=== PATIENT | male | born 1950 | race Caucasian/White ===

== ENCOUNTER → 2017-02-28 | Outpatient (CLI) | payer MEDICARE, OTHER ==
[~2017-02-28] MED LIST: ASCO500T20 PO; ASP325TEC; ASP81TEC PO; ATEN25TA PO; ATN50T; C250T; CHOL2000 PO; CLPD75T PO; CYAN10007 PO; ENLP10T PO; NFD60TCR PO; OMG1KC PO; OMNICEF; SIMV40TA2 PO; THM100T; VIT D OTC PO; VITAMIN B
--- NOTE | 2017-03-03 06:39 | ECHOCARDIOGRAPHY REPORT ---
DATE OF SERVICE: 02/28/2017 ECHOCARDIOGRAPHY REPORT ORDERING PHYSICIAN: Ally Bolivar APRN PRIMARY PHYSICIAN: Dr. Caceres. OTHER PHYSICIAN: Dr. Manning. CLINICAL DIAGNOSIS: Coronary artery disease, hypertension. MEASUREMENTS: Aortic root 3.3. LV diameter diastolic 5.5. IVS thickness, diastolic 0.9. LVPW thickness, diastolic 0.9. Left atrium 4.6. DESCRIPTION: Two dimensional echocardiography shows well-preserved global left ventricular systolic function. Left ventricular ejection fraction is approximately 60%. Aortic, mitral and tricuspid valve leaflets show good leaflet excursion. There is no significant pericardial effusion. There is mild aortic valve sclerosis. The aortic valve leaflet structure is not very well visualized. No distinct regional wall motion abnormalities seen on this study. Doppler imaging shows trivial tricuspid regurgitation. Pulmonary artery systolic pressure is estimated at approximately 30 mmHg. There is no Doppler evidence of significant valvular stenosis. There is mild to moderate mitral regurgitation. There is no evidence of any significant intracardiac shunt on this transthoracic echocardiographic study. Inferior vena cava appears to be of normal size and appears mostly collapsed during the study. There is no distinct evidence of intracardiac shunt on this transthoracic echocardiographic study. CONCLUSIONS: 1. Well preserved global left ventricular systolic function with ejection fraction approximately 60%. 2. Mild to moderate enlargement of the left atrium. 3. Trivial tricuspid regurgitation. 4. Mild to moderate mitral regurgitation. 5. Mild aortic valve sclerosis. 6. No evidence of any significant valvular stenosis. 7. Pulmonary systolic pressure is estimated at approximately 30 mmHg. Job ID: [id number] DocumentID: [id number] Dictated Date: 03/02/2017 15:11:57 Wildlife Ecology Professor Date: 03/02/2017 19:28:20 Dictated By: KENNY MANNING MD, MA, FACP, FACC,
== END ==
LOC: CARD 11:49
PROVIDERS: ATTEND Nurse Practitioner Family
DX: I25.10 Atherosclerotic heart disease of native coronary artery without angina pectoris (principal); I10 Essential (primary) hypertension; E78.4 Other hyperlipidemia; G47.33 Obstructive sleep apnea (adult) (pediatric); I65.23 Occlusion and stenosis of bilateral carotid arteries; I08.0 Rheumatic disorders of both mitral and aortic valves
CPT/HCPCS: 93306

== ENCOUNTER → 2019-04-11 | Outpatient (CLI) | payer MEDICARE, OTHER ==
--- NOTE | 2019-04-11 13:54 | Diagnostic Imaging Report ---
INDICATION: Fall, right shoulder pain FINDINGS: Three views of the right shoulder show no fracture, dislocation or other acute bony abnormality. There are mild degenerative changes at the glenohumeral joint. There is slight narrowing of the space between the humeral head and acromion which may be secondary to rotator cuff disease. IMPRESSION: There are degenerative changes present with no acute abnormality seen. Dictated by: Dictated on workstation # [id number]
== END ==
LOC: RAD 13:27
PROVIDERS: ATTEND Nurse Practitioner Family
DX: M19.011 Primary osteoarthritis, right shoulder (principal); W19.XXXA Unspecified fall, initial encounter
CPT/HCPCS: 73030

== ENCOUNTER → 2019-04-22 | Outpatient (CLI) | payer MEDICARE, OTHER ==
--- NOTE | 2019-04-22 13:00 | Diagnostic Imaging Report ---
EXAMINATION: Magnetic resonance imaging of the right shoulder without contrast. DATE: April 22, 2019. COMPARISON: Right shoulder radiograph April 11, 2019. HISTORY: 68-year-old male, injury one week ago. Right shoulder pain. TECHNIQUE: Magnetic Resonance Imaging sequences were performed of the shoulder without contrast. FINDINGS: ROTATOR CUFF, LIGAMENTS, TENDONS, AND MUSCLES: There are full-thickness fullwidth tears of the supraspinatus and infraspinatus tendons with tendon retraction near the level of the glenoid. The teres minor tendon is intact. There is a full-thickness tear of the subscapularis tendon with tendon retraction estimated at 1.5 cm. There is no pronounced fatty atrophy of the rotator cuff musculature. There is very low-level edema in the supraspinatus and infraspinatus muscles. LONG HEAD OF BICEPS: The long head of biceps tendon is medially subluxed and partially perched on the lesser tuberosity. The biceps labral attachment is intact. GLENOHUMERAL JOINT: The humeral head is superiorly subluxed and directly abuts the undersurface of the acromion. There is mild posterior subluxation of the humeral head relative to the glenoid. The labrum is grossly intact. There is no identified paralabral cyst. The articular cartilage is grossly intact. There is a small glenohumeral joint effusion. ACROMIOCLAVICULAR JOINT: The acromioclavicular joint is normally aligned. The coracoclavicular and coracoacromial ligaments are intact. There are mild acromioclavicular degenerative changes without large undersurface osteophyte. BONE: There is no os acromiale. Additional osseous morphology is unremarkable. The bone marrow signal is within normal limits. Specifically, negative for fracture, osteomyelitis, osteonecrosis, or marrow replacing process. BURSAE AND SOFT TISSUES: There is fluid in the subacromial subdeltoid bursa compatible with the full-thickness rotator cuff tendon tears, bursitis, and/or recent injection. IMPRESSION: 1. Full-thickness fullwidth tears of the supraspinatus and infraspinatus tendons as well as subscapularis. The supraspinatus and infraspinatus tendons are retracted near the level of the glenoid. There is estimated 1.5 cm retraction of the subscapularis tendon. Very low level edema in the supraspinatus and infraspinatus muscles without prominent fatty muscle atrophy. The edema could relate to low-grade muscle strains and/or early denervation related signal changes. 2. Mild acromioclavicular degenerative changes without undersurface osteophyte. 3. Superiorly subluxed and mildly posteriorly subluxed humeral head with small glenohumeral joint effusion. Grossly intact labrum. 4. No acute fracture, bone contusion, or evidence of osteonecrosis. 5. Fluid in the subacromial subdeltoid bursa compatible with the full-thickness rotator cuff tendon tear, bursitis, and/or recent injection. Dictated by: Dictated on workstation # [id number]
== END ==
LOC: RAD 09:06
PROVIDERS: ATTEND Nurse Practitioner
DX: S49.91XA Unspecified injury of right shoulder and upper arm, initial encounter (principal); S46.011A Strain of muscle(s) and tendon(s) of the rotator cuff of right shoulder, initial encounter; S43.001A Unspecified subluxation of right shoulder joint, initial encounter; M19.011 Primary osteoarthritis, right shoulder
CPT/HCPCS: 73221

== ENCOUNTER → 2019-05-14 | Outpatient (CLI) | payer MEDICARE, OTHER ==
[~2019-05-14] MED LIST changes: +CATHETER FLUSH 10 ML SYR IV PRN; +REGADENOSON 0.4 MG/5 ML SYR (LEXISCAN) IV ONE
--- NOTE | 2019-05-17 15:03 | STRESS TEST ---
DATE OF SERVICE: 05/14/2019 RESTING AND POST REGADENOSON TECHNETIUM-99M TETROFOSMIN SPECT CT IMAGING ORDERING PHYSICIAN: Ally Bolivar APRN PRIMARY PHYSICIAN: Dr. Garcia. OTHER PHYSICIAN: Shanell Manning MD, MA, FACP, FACC CLINICAL DIAGNOSES: Coronary artery disease. Baseline images were carried out after injection of 10.68 mCi of technetium-99m Tetrofosmin. This was followed by 0.4 mg regadenoson and 28.4 mCi of technetium-99m Tetrofosmin for stress imaging. The electrocardiogram showed sinus rhythm at baseline. It did not change significantly with regadenoson infusion. The patient tolerated the procedure well. Review of images at rest and following stress does not indicate any distinct perfusion defects consistent with significant myocardial ischemia or infarction. Gated images showed normal global left ventricular systolic function, normal regional wall motion. Left ventricular ejection fraction is calculated to be 55%. Left ventricular end diastolic volume is 140 mL. TID is absent (1.07). CONCLUSIONS: 1. Pahl-tr-etutfooi cardiomegaly without evidence of significant myocardial ischemia or infarction. 2. Normal regional wall motion. 3. Normal global left ventricular systolic function with a calculated ejection fraction of 55%. Job ID: [id number] DocumentID: [id number] Dictated Date: 05/17/2019 11:43:23 Cut Off Saw Operator Metal Date: 05/17/2019 15:03:20 Dictated By: SHANELL MANNING MD, [place], FACP, FACC,
== END ==
LOC: CARD 07:12
PROVIDERS: ATTEND Nurse Practitioner Family
DX: I25.10 Atherosclerotic heart disease of native coronary artery without angina pectoris (principal); I11.9 Hypertensive heart disease without heart failure; I65.29 Occlusion and stenosis of unspecified carotid artery; E78.2 Mixed hyperlipidemia; G47.33 Obstructive sleep apnea (adult) (pediatric)
CPT/HCPCS: 78452; 93017

== ENCOUNTER 2019-07-14 08:23 | Outpatient (RCR) | payer MEDICARE, OTHER ==
[~2019-07-14 08:23] MED LIST changes: -CATHETER FLUSH 10 ML SYR IV PRN; -REGADENOSON 0.4 MG/5 ML SYR (LEXISCAN) IV ONE
== END 2019-07-14 10:40 | disposition home or self-care (01) ==
PROVIDERS: ATTEND Orthopaedic Surgery
DX: S46.011A Strain of muscle(s) and tendon(s) of the rotator cuff of right shoulder, initial encounter (principal); W17.2XXA Fall into hole, initial encounter

== ENCOUNTER 2019-11-04 23:14 | Emergency (ER) | payer MEDICARE, OTHER ==
[~2019-11-04] VITALS: Ht 180 cm; Wt 98.8 kg
[2019-11-04 23:59] LABS: BASOPHILS % (AUTO) 0 % (0-10); EOSINOPHILS # (AUTO) 0.2 10^3/uL (0.0-0.3); EOSINOPHILS % (AUTO) 4 % (0-10); HEMATOCRIT 47 % (40-54); HEMOGLOBIN 16.8 G/DL (13.3-17.7); LYMPHOCYTES # (AUTO) 2.4 X 10^3 (1.0-4.0); LYMPHOCYTES % (AUTO) 39 % (12-44); MEAN CORPUSCULAR HEMOGLOBIN 31 PG (25-34); MEAN CORPUSCULAR HGB CONC 36 G/DL (32-36); MEAN CORPUSCULAR VOLUME 86 FL (80-99); MEAN PLATELET VOLUME 9.5 FL (7.4-10.4); MONOCYTES # (AUTO) 0.7 X 10^3 (0.0-1.0); MONOCYTES % (AUTO) 12 % (0-12); NEUTROPHILS # (AUTO) 2.7 X 10^3 (1.8-7.8); NEUTROPHILS % (AUTO) 45 % (42-75); PLATELET COUNT 118 10^3/uL (130-400); RED CELL DISTRIBUTION WIDTH 13.1 % (10.0-14.5); WHITE BLOOD COUNT 6.1 10^3/uL (4.3-11.0)
--- NOTE | 2019-11-05 | ED Syncope ---
General Chief Complaint: Dizziness/Syncope Stated Complaint: DIZZY Source of Information: Patient, Spouse Exam Limitations: No Limitations History of Present Illness Date Seen by Provider: Nov 04, 2019 Time Seen by Provider: 23:48 Initial Comments The patient arrives the ER by private conveyance with his spouse and chief complaint for the past week he's been having intermittent episodes lasting a few minutes at the time of feeling like his head was full, big and like he was going to pass out. He has not had any syncopal episodes. Tonight he woke up around 10:00 with this symptom and it has not gone away. He has tried Flonase couple times. He's tried some srjp-awi-fvkcojc cough and cold/congestion medications with no relief. He used to follow with Dr. Garcia but recently established care 3 weeks ago with Reji Ricardo and has not followed up since then. He is not having any chest pain, irregular heartbeat or palpitations. No history of dysrhythmias. 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 He is not having any shortness of breath or exertional dyspnea. No nausea vomiting diarrhea, abdominal pain, dysuria. He does not routinely drink or smoke. Allergies and Home Medications Allergies Coded Allergies: No Known Drug Allergies (Verified , 11/04/07) Home Medications Ascorbic Acid 500 Mg Tablet, 500 MG PO DAILY, (Reported) Aspirin 81 Mg Tabec, 81 MG PO DAILY, (Reported) Atenolol 25 Mg Tablet, 25 MG PO DAILY, (Reported) Cholecalciferol 2,000 Unit Capsule, 2,000 UNIT PO DAILY, (Reported) Clopidogrel 75 Mg Tablet, 75 MG PO DAILY, (Reported) Cyanocobalamin 1,000 Mcg Tablet.sa, 1,000 MCG PO DAILY, (Reported) Enalapril Maleate 10 Mg Tablet, 10 MG PO BID, (Reported) Nifedipine 60 Mg Tab, 60 MG PO DAILY, (Reported) [place] 3 Polyunsat Fatty Acids 1,000 Mg Cap, 1,000 MG PO BID, (Reported) Simvastatin 40 Mg Tablet, 40 MG PO HS, (Reported) Patient Home Medication List Home Medication List Reviewed: Yes Review of Systems Constitutional: see HPI; No chills; dizziness; No fever, No malaise EENTM: see HPI (ear pressure), nose congestion; No ear discharge, No ear pain Respiratory: No cough, No dyspnea on exertion, No short of breath, No wheezing Cardiovascular: No chest pain, No edema; Hx of Intervention; No palpitations; syncope (near syncope without), vascular heart diseas Gastrointestinal: No abdominal pain, No constipation, No diarrhea, No nausea, No vomiting Genitourinary: No discharge, No dysuria Musculoskeletal: No back pain, No joint pain Psychiatric/Neurological: Denies Anxiety, Denies Depressed All Other Systems Reviewed Negative Unless Noted: Yes Past Hlyxvvg-Lnaxmj-Qotlxy Hx Patient Social History Alcohol Use: Denies Use Recreational Drug Use: No Smoking Status: Never a Smoker Recent Foreign Travel: No Contact w/Someone Who Travel: No Immunizations Up To Date Date of Influenza Vaccine: Jul 12, 2014 Past Medical History Reproductive Disorders: No Physical Exam Vital Signs Vital Signs - First Documented 11/05/19 00:17 Pulse 63 62 60 B/P (MAP) 154/82 (106) 154/78 (103) 149/92 (111) Capillary Refill : Height, Weight, BMI Height: 5'11" Weight: 210lbs. oz. 95.253925tv; BMI Method:Stated General Appearance: No Apparent Distress, WD/WN HEENT: PERRL/EOMI, TMs Normal, Normal ENT Inspection, Pharynx Normal; No Moist Mucous Membranes Neck: Full Range of Motion, Normal Inspection Cardiovascular: No Edema, Normal Peripheral Pulses Respiratory: Chest Non Tender, Lungs Clear, Normal Breath Sounds, No Accessory Muscle Use, No Respiratory Distress Gastrointestinal: Normal Bowel Sounds, Non Tender, Soft Extremities: Normal Capillary Refill, Normal Inspection, No Pedal Edema Neurologic/Psychiatric: Alert, Oriented x3 Cranial Nerves: Normal Hearing, Normal Speech, PERRL Motor/Sensory: No Motor Deficit, No Sensory Deficit Skin: Normal Color, Warm/Dry Progress/Results/Core Measures Results/Orders Lab Results Laboratory Tests Test 11/04/19 23:48 11/05/19 00:13 Range/Units White Blood Count 6.1 4.3-11.0 10^3/uL Red Blood Count 5.45 4.35-5.85 10^6/uL Hemoglobin 16.8 13.3-17.7 G/DL Hematocrit 47 40-54 % Mean Corpuscular Volume 86 80-99 FL Mean Corpuscular Hemoglobin 31 25-34 PG Mean Corpuscular Hemoglobin Concent 36 32-36 G/DL Red Cell Distribution Width 13.1 10.0-14.5 % Platelet Count 118 L 130-400 10^3/uL Mean Platelet Volume 9.5 7.4-10.4 FL Neutrophils (%) (Auto) 45 42-75 % Lymphocytes (%) (Auto) 39 12-44 % Monocytes (%) (Auto) 12 0-12 % Eosinophils (%) (Auto) 4 0-10 % Basophils (%) (Auto) 0 0-10 % Neutrophils # (Auto) 2.7 1.8-7.8 X 10^3 Lymphocytes # (Auto) 2.4 1.0-4.0 X 10^3 Monocytes # (Auto) 0.7 0.0-1.0 X 10^3 Eosinophils # (Auto) 0.2 0.0-0.3 10^3/uL Basophils # (Auto) 0.0 0.0-0.1 10^3/uL Sodium Level 139 135-145 MMOL/L Potassium Level 3.9 3.6-5.0 MMOL/L Chloride Level 108 H 98-107 MMOL/L Carbon Dioxide Level 21 21-32 MMOL/L Anion Gap 10 5-14 MMOL/L Blood Urea Nitrogen 17 7-18 MG/DL Creatinine 0.89 0.60-1.30 MG/DL Estimat Glomerular Filtration Rate > 60 BUN/Creatinine Ratio 19 Glucose Level 123 H 70-105 MG/DL Calcium Level 9.4 8.5-10.1 MG/DL Corrected Calcium 9.2 8.5-10.1 MG/DL Total Bilirubin 0.9 0.1-1.0 MG/DL Aspartate Amino Transf (AST/SGOT) 29 5-34 U/L Alanine Aminotransferase (ALT/SGPT) 42 0-55 U/L Alkaline Phosphatase 67 40-136 U/L Troponin I < 0.028 <0.028 NG/ML B-Type Natriuretic Peptide 69.8 <100.0 PG/ML Total Protein 7.3 6.4-8.2 GM/DL Albumin 4.3 3.2-4.5 GM/DL Urine Color YELLOW Urine Clarity CLEAR Urine pH 5.5 5-9 Urine Specific [place] 1.025 H 1.016-1.022 Urine Protein NEGATIVE NEGATIVE Urine Glucose (UA) NEGATIVE NEGATIVE Urine Ketones NEGATIVE NEGATIVE Urine Nitrite NEGATIVE NEGATIVE Urine Bilirubin NEGATIVE NEGATIVE Urine Urobilinogen 0.2 < = 1.0 MG/DL Urine Leukocyte Esterase NEGATIVE NEGATIVE Urine RBC (Auto) TRACE-L NEGATIVE Urine RBC 0-2 /HPF Urine WBC 0-2 /HPF Urine Crystals PRESENT H /LPF Urine Amorphous Sediment FEW MUKESH URATES H /LPF Urine Bacteria TRACE /HPF Urine Casts NONE /LPF Urine Mucus SMALL H /LPF Urine Culture Indicated NO My Orders Orders - SARAY,DANIELLE J Continuous Ekg Monitoring (11/04/19 23:53) Ekg Tracing (11/04/19 23:53) Troponin I (11/04/19 23:53) BNP (11/04/19 23:53) Orthostatic Vital Signs (Adult (11/04/19 23:53) Cbc With Automated Diff (11/04/19 23:53) Comprehensive Metabolic Panel (11/04/19 23:53) Ua Culture If Indicated (11/04/19 23:53) Ed Iv/Invasive Line Start (11/04/19 23:53) Chest 1 View, Ap/Pa Only (11/05/19 00:06) Vital Signs/I&O 11/05/19 00:17 Pulse 63 62 60 B/P (MAP) 154/82 (106) 154/78 (103) 149/92 (111) Progress Progress Note #1: Time: 23:59 Progress Note Bilateral ear fullness, head pressure and near syncopal episodes for the past week. We'll obtain some labs and urinalysis for a syncopal episode workup. We'll get an EKG, chest x-ray and obtain orthostatic vital signs. Stress test from April 2019 showing mild to moderate cardiomegaly without evidence of significant ischemia or infarction and an EF of 55%. Echocardiogram [address] Stark: EF of 60%. No significant valvular stenosis. Progress Note #2: Time: 01:37 Progress Note Orthostatic vital signs are normal. EKG is unremarkable. [place] syncope score 1 point. Medium risk; 3.1% risk of 30-day serious adverse event. Initial ECG Impression Date: Nov 05, 2019 Initial ECG Impression Time: 23:59 Initial ECG Rate: 59 Initial ECG Intervals: Normal Initial ECG Impression: Normal Initial ECG Comparisson: Unchanged Comment Respiratory artifact in lateral leads V4 and V5. No ST elevation or depression. Normal sinus rhythm. Diagnostic Imaging Diagonstic Imaging: Xray Plain Films/CT/US/NM/MRI: chest (1v) Comments No acute cardiopulmonary processes noted. Sternotomy wires noted. Reviewed: Reviewed by Me Departure Impression Primary Impression: Near syncope Disposition: 01 HOME, SELF-CARE Condition: Stable Departure-Patient Inst. Decision time for Depature: 01:43 Referrals: KENNY STARK [facility] REJI ANDERSON MD (PCP/Family) Primary Care Physician Patient Instructions: Near Fainting (DC) Add. Discharge Instructions: Because of your near fainting spells becoming more frequent I would like to follow up with your warehouse distribution specialist early next week if possible. Call for an appointment today. If you begin to have other symptoms such as chest pain, shortness of breath etc. please return to the nearest ER. Continue taking her medications as prescribed. All discharge instructions reviewed with patient and/or family. Voiced understanding. Copy Copies To 1: KENNY STARK MD [facility] DANIELLE SO Nov 05, 2019 00:00
[2019-11-05 00:17] VITALS: BP_SYST 149; BP_SYST 154; BP_DIAS 78; BP_DIAS 82; BP_DIAS 92
[2019-11-05 00:17] LABS: ALANINE AMINOTRANSFERASE 42 U/L (0-55); ALBUMIN 4.3 GM/DL (3.2-4.5); ALKALINE PHOSPHATASE 67 U/L (40-136); BILIRUBIN,TOTAL 0.9 MG/DL (0.1-1.0); BUN/CREATININE RATIO 19; CALCIUM 9.4 MG/DL (8.5-10.1); CARBON DIOXIDE 21 MMOL/L (21-32); CHLORIDE 108 MMOL/L (98-107); CREATININE SERUM 0.89 MG/DL (0.60-1.30); GFR ESTIMATED > 60; GLUCOSE 123 MG/DL (70-105); POTASSIUM 3.9 MMOL/L (3.6-5.0); SODIUM 139 MMOL/L (135-145); TOTAL PROTEIN 7.3 GM/DL (6.4-8.2)
[2019-11-05 00:20] LABS: BILIRUBIN,URINE NEGATIVE (NEGATIVE); CLARITY,URINE CLEAR; COLOR,URINE YELLOW; GLUCOSE, URINE (UA) NEGATIVE (NEGATIVE); KETONES,URINE NEGATIVE (NEGATIVE); LEUKOCYTE ESTERASE ,URINE NEGATIVE (NEGATIVE); NITRITE,URINE NEGATIVE (NEGATIVE); PH,URINE 5.5 (5-9); PROTEIN,URINE NEGATIVE (NEGATIVE)
[2019-11-05 00:41] LABS: RBC,URINE 0-2 /HPF; WBC,URINE 0-2 /HPF
[2019-11-05 00:42] LABS: AMORPHOUS SEDIMENT,UR FEW AMOR URATES /LPF; BACTERIA,URINE TRACE /HPF
[2019-11-05 01:58] VITALS: BP 132/74
--- NOTE | 2019-11-05 07:18 | Diagnostic Imaging Report ---
EXAM: CHEST 1 VIEW, AP/PA ONLY INDICATION: Dizziness. COMPARISON: 04/14/2008. FINDINGS: Sternotomy with mediastinal markers. Calcified granuloma on the right. Normal heart size and central pulmonary vascularity. No pleural effusion or pneumothorax. IMPRESSION: No acute cardiopulmonary findings. Dictated by: Dictated on workstation # [id number]
== END 2019-11-05 01:58 | disposition home or self-care (01) ==
LOC: EDUNIT# 23:14 → ER 23:17
DX: R55 Syncope and collapse (principal); Z95.1 Presence of aortocoronary bypass graft; Z79.82 Long term (current) use of aspirin; Z79.02 Long term (current) use of antithrombotics/antiplatelets
CPT/HCPCS: 36415; 71045; 80053; 81000; 83880; 84484; 85025; 93005

== ENCOUNTER 2019-11-11 07:20 | Outpatient (RCR) | payer MEDICARE, OTHER ==
[2019-12-21] MEDS ORDERED: MTP100TCR PO (08:21)
[2019-12-21] MEDS ORDERED: LISI-556 PO (08:21)
[2019-12-21] MEDS ORDERED: ATOR40TA70 PO (08:21)
== END 2020-02-09 | disposition home or self-care (01) ==
LOC: RAD 07:20
PROVIDERS: ATTEND Internal Medicine Cardiovascular Disease
DX: I25.10 Atherosclerotic heart disease of native coronary artery without angina pectoris (principal); I77.89 Other specified disorders of arteries and arterioles; E78.5 Hyperlipidemia, unspecified; I10 Essential (primary) hypertension; R51 Headache; G47.33 Obstructive sleep apnea (adult) (pediatric); I47.1 Supraventricular tachycardia
CPT/HCPCS: 70470

== ENCOUNTER → 2019-11-16 | Outpatient (CLI) | payer MEDICARE, OTHER | LOC: CARD 09:25 | PROVIDERS: ATTEND Internal Medicine Cardiovascular Disease | DX: I25.10 Atherosclerotic heart disease of native coronary artery without angina pectoris (principal); I77.89 Other specified disorders of arteries and arterioles; E78.5 Hyperlipidemia, unspecified; I11.9 Hypertensive heart disease without heart failure; I34.0 Nonrheumatic mitral (valve) insufficiency; R51 Headache; G47.33 Obstructive sleep apnea (adult) (pediatric); I47.1 Supraventricular tachycardia | CPT/HCPCS: 93306 ==

== ENCOUNTER 2019-12-21 07:54 | Day surgery (SDC) | payer MEDICARE, OTHER ==
[2019-12-21] VITALS (9 sets, daily range): BP systolic 99–176; BP diastolic 51–101
[~2019-12-21] VITALS: Ht 180 cm; Wt 95.0 kg
[~2019-12-21 07:54] MED LIST changes: +HEParin (CATH LAB) 2,000 ML IV ONE; +LIDOCAINE 1% INJ 20 ML 20 ML VIAL ONE; +NS IV 1000 ML 1,000 ML ONE
[2019-12-21] MEDS ORDERED: NS IV 1000 ML 1,000 ML IV SCH ×2 (08:15→11:11)
[2019-12-21 08:19] LABS: HEMOGLOBIN 17.4 G/DL (13.3-17.7); MEAN PLATELET VOLUME 9.5 FL (7.4-10.4); RED CELL DISTRIBUTION WIDTH 13.7 % (10.0-14.5); WHITE BLOOD COUNT 7.3 10^3/uL (4.3-11.0)
[2019-12-21] MEDS ORDERED: MTP100TCR PO (08:21)
[2019-12-21] MEDS ORDERED: LISI-556 PO (08:21)
[2019-12-21] MEDS ORDERED: ATOR40TA70 PO (08:21)
[2019-12-21 08:33] LABS: INR 0.9 (0.8-1.4); PROTHROMBIN TIME PATIENT 12.9 SEC (12.2-14.7)
[2019-12-21 08:41] LABS: ALANINE AMINOTRANSFERASE 66 U/L (0-55); ALBUMIN 4.5 GM/DL (3.2-4.5); ALKALINE PHOSPHATASE 71 U/L (40-136); BILIRUBIN,TOTAL 1.7 MG/DL (0.1-1.0); BUN/CREATININE RATIO 13; CALCIUM 9.3 MG/DL (8.5-10.1); CARBON DIOXIDE 24 MMOL/L (21-32); CHLORIDE 102 MMOL/L (98-107); CHOLESTEROL 138 MG/DL (< 200); CREATININE SERUM 1.04 MG/DL (0.60-1.30); GFR ESTIMATED > 60; GLUCOSE 105 MG/DL (70-105); HDL CHOLESTEROL 48 MG/DL (40-60); SODIUM 138 MMOL/L (135-145); TOTAL PROTEIN 7.5 GM/DL (6.4-8.2); TRIGLYCERIDES 208 MG/DL (<150); VLDL CHOLESTEROL 42 MG/DL (5-40)
[2019-12-21] MEDS ORDERED: MIDAZOLAM 5 MG/5 ML (VERSED) VIAL ONE (09:51)
[2019-12-21] MEDS ORDERED: fentaNYL INJECTION 100 MCG/2 ML AMP ONE (09:52)
--- NOTE | 2019-12-21 10:21 | Cardiac Procedure Note-CS/ASA ---
Pre-Procedure Note Pre-Op Procedure Note H&P Reviewed The H&P was reviewed, patient examined and no changes noted. Date H&P Reviewed: Dec 21, 2019 Time H&P Reviewed: 10:21 Conscious Sedation Pre-Proced Time 10:21 ASA Score 3 For ASA 3 and 4: Consider anesthesia and medical clearance. Also, for patients with a history of failed moderate sedation consider anesthesia. Airway Lungs Heart ASA score ASA 1: a normal healthy patient ASA 2: a patient with a mild systemic disease (mid diabetes, controlled hypertension, obesity ASA 3: a patient with a severe systemic disease that limits activity (angina, COPD, prior Myocardial infarction) ASA 4: a patient with an incapacitating disease that is a constant threat to life (CHF, renal failure) ASA 5: a moribund patient not expected to survive 24 hrs. (ruptured aneurysm) ASA 6: a declared brain- patient whose organs are being harvested. For emergent operations, add the letter E after the classification Mallampati Classification Grade 2 Sedation Plan Analgesia, Amnesia, Plan communicated to team members, Discussed options with patient/fam, Discussed risks with patient/fam The patient is an appropriate candidate to undergo the planned procedure, sedation, and anesthesia. The patient immediately re-assessed prior to indication. KENNY MANNING MD FACP FAC CCDS Dec 21, 2019 10:21
[2019-12-21] MEDS ORDERED: PATIENT MAY USE OWN MEDS, ALL PO SCH (11:15)
--- NOTE | 2019-12-21 11:19 | Discharge Inst-Cardiology ---
Discharge Inst-Cardiac Discharge Medications Continued Medications: Ascorbic Acid (Vitamin C 500 Mg) 500 Mg Tablet 500 MG PO DAILY Aspirin (Aspirin Ec 81 Mg) 81 Mg Tabec 81 MG PO DAILY Cholecalciferol (Vitamin D) 2,000 Unit Capsule 2000 UNIT PO DAILY Clopidogrel (Plavix) 75 Mg Tablet 75 MG PO DAILY Cyanocobalamin (Vitamin B12) 1,000 Mcg Tablet.sa 1000 MCG PO DAILY Lisinopril (Lisinopril) 5 Mg Tablet 5 MG PO BID, TAB Metoprolol Succinate (Metoprolol Succinate) 100 Mg Tab.er.24h 100 MG PO DAILY, TAB [place] 3 Polyunsat Fatty Acids (Fish Oil) 1,000 Mg Cap 1000 MG PO BID Discontinued Medications: Atorvastatin Calcium (Atorvastatin Calcium) 40 Mg Tablet 40 MG PO HS, TAB Patient Instructions Patient Instructions: F/u with PCP as soon as possible for eval of mildly elevated liver enzymes and bilirubin KENNY MANNING MD FACP [facility] Dec 21, 2019 11:19
--- NOTE | 2019-12-21 11:20 | Discharge Inst-Post CATH ---
Discharge Inst-CATH/EP Post Cardiac Cath/EP D/C Inst Follow Up/Plan F/u with PCP as soon as possible for eval of mildly elevated liver enzymes and bilirubin F/u with Dr Stark in one month (or earlier, if needed) ACTIVITY * Go Home directly and rest. * Limit activity of the leg (or wrist if it was used) for 7 days including aerobics, swimming, jogging, bicycling, etc. * Restrict stair-climbing for 7 days if possible, if not, climb up with your non-cath leg, then bring together on the same step. * Avoid lifting, pushing, pulling or excessive movement of the affected extremity for 7 days. * Customary sexual activity may be resumed after 2 days-use caution not to use a position that strains or causes pain to the affected extremity. * No driving for 24 hours. * NO SMOKING. * Avoid straining for bowel movements for 7 days. * Gentle walking on level ground is allowed. * Returning to work will depend on the type of procedure and the results. Your doctor will discuss this with you. CALL YOUR DOCTOR FOR ANY OF THE FOLLOWING: *If bleeding from the puncture site occurs- Apply gentle pressure to site with clean cloth and call your doctor or EMS. * If a knot or lump forms under the skin, increases in size, or causes pain. * If bruising appears to be worsening or moving further down your leg instead of disappearing. * Temperature above 101 F. CARE OF YOUR GROIN INCISION; * Bruising or purple discoloration of the skin near the puncture site is common. * You may shower only, no bathtub bathing for 5 days. Be careful to avoid slipping as your leg may feel stiff. * If a closure device was used on your femoral artery, please see the attached guide regarding care of the device and your leg. * Leave dressing on FOR 24 hours. CARE OF YOUR WRIST INCISION; * Bruising or purple discoloration of the skin near the puncture site is common. * You may shower. * DO NOT submerge wrist. * Leave dressing on FOR 24 hours. KENNY STARK MD FACP FAC [facility]S Dec 21, 2019 11:20
--- NOTE | 2019-12-21 11:33 | CARDIAC CATHETERIZATION ---
DATE OF SERVICE: 12/21/2019 CARDIAC CATHETERIZATION REPORT INDICATIONS: The patient is a 69-year-old gentleman, who is known to have coronary artery disease and has had coronary artery bypass surgery. He has recently had some episodes of dizziness and near syncope. An event monitor study showed brief runs of supraventricular tachycardia. One three beat run of wide complex tachycardia was seen on which nonsustained ventricular tachycardia could not be excluded. Cardiac catheterization was recommended. Informed consent was obtained. DESCRIPTION OF PROCEDURE: He was brought to the cardiac catheterization laboratory in a fasting state. Right groin was prepared and draped in the usual sterile fashion. Lidocaine 1% for local anesthesia. Modified Seldinger technique was used to advance a 5-Slovak sheath in right femoral artery, 5-Slovak JL4 catheter was used for left coronary angiography, 5-Slovak JR4 catheter for right coronary angiography and for angiography of the saphenous vein grafts. A 5-Slovak LISA catheter was used for angiography of the left internal mammary artery graft to left anterior descending. Angiography of the right femoral artery was carried out through the sheath. Mynx was used to achieve hemostasis. He tolerated the procedure well. HEMODYNAMICS: Left ventricular end-diastolic pressure following coronary angiography was 13 mmHg. There was no significant pressure gradient on pullback across the aortic valve. Ascending aortic pressure was 109/62 with a mean 84 mmHg. CORONARY ANGIOGRAPHY: Left main coronary artery is free of significant disease. Left anterior descending artery had a 90% proximal stenosis. Left circumflex artery had mild diffuse disease. Right coronary artery was heavily calcified and there are proximal to mid vessel and distal right coronary artery stents. There is approximately 60% stenosis prior to the origin of the posterior descending branch. The very distal portion of the right coronary artery beyond the posterior descending branch appears occluded. AORTOCORONARY GRAFT ANGIOGRAPHY: The more cephalic graft appears to a distal posterolateral system, which appears to be from the right coronary. This graft is patent and does not exhibit significant disease. The more caudal graft is occluded in its proximal portion. This, presumably, was to the posterior descending branch of the right. LEFT INTERNAL MAMMARY GRAFT ANGIOGRAPHY: Left internal mammary artery graft to distal left anterior descending artery is widely patent and does not exhibit significant disease. LEFT VENTRICULAR ANGIOGRAPHY: Left ventricular angiography was carried out in the right anterior oblique projection. Global left ventricular systolic function is well preserved. Left ventricular ejection fraction is approximately 55%. AORTIC ROOT ANGIOGRAPHY: Aortic root angiography did not indicate any significant thoracic aortic aneurysm or dissection. The aortic root angiography was performed after the pigtail catheter had been pulled back from the left ventricle into the ascending aorta. It was performed to make sure that no aortocoronary grafts have been missed. No aortocoronary grafts other than the ones described above were found. CONCLUSIONS: 1. Coronary artery disease consisting of 90% proximal stenosis of the left anterior descending artery and moderate disease involving the left circumflex and the right coronary arteries. The very distal portion of the right coronary artery appears to be occluded. 2. Patent left internal mammary artery graft to the left anterior descending. 3. Patent aortocoronary graft to a distal posterolateral system that is probably from the right coronary. 4. Occluded saphenous vein graft to posterior descending branch of the right coronary. 5. High normal left ventricular end-diastolic pressure. 6. Well preserved global left ventricular systolic function with ejection fraction approximately 55% and without distinct regional wall motion abnormalities. DISCUSSION AND RECOMMENDATIONS: Based on results of the study, it appears appropriate to continue a conservative approach. Risk factor modification has been reviewed and an outpatient followup is advised. Job ID: [id number] DocumentID: [id number] Dictated Date: 12/21/2019 11:00:25 Engineering Group Leader Date: 12/21/2019 11:32:42 Dictated By: KENNY MANNING MD, MA, FACP, FACC,
--- NOTE | 2019-12-21 14:10 | NUR ---
NO SIGNS OF BLEEDING. VSS. PATIENT UP TO AMBULATE IN THE HALLS. TOLERATED ACTIVITY WELL. DISCHARGE INSTRUCTIONS WENT OVER WITH THE PATIENT.
== END 2019-12-21 14:20 | disposition home or self-care (01) ==
LOC: CATH 07:54 → SDC 11:07 → CATH 14:20
PROVIDERS: ATTEND Internal Medicine Cardiovascular Disease
DX: I25.10 Atherosclerotic heart disease of native coronary artery without angina pectoris (principal); Z95.1 Presence of aortocoronary bypass graft; I10 Essential (primary) hypertension; I47.1 Supraventricular tachycardia; G47.33 Obstructive sleep apnea (adult) (pediatric); Z79.899 Other long term (current) drug therapy
CPT/HCPCS: 36415; 80053; 80061; 85027; 85610; 85730; 87081; 93459; 93567

== ENCOUNTER → 2021-12-04 | Outpatient (CLI) | payer MEDICARE, OTHER ==
[~2021-12-04] MED LIST changes: +ATOR40TA70 PO; +CATHETER FLUSH 10 ML SYR IVP PRN; -HEParin (CATH LAB) 2,000 ML IV ONE; -LIDOCAINE 1% INJ 20 ML 20 ML VIAL ONE; +LISI5TAB20 PO; +MTP100TCR PO; -NS IV 1000 ML 1,000 ML ONE; +REGADENOSON 0.4 MG/5 ML SYR (LEXISCAN) IV ONE
[2021-12-04 12:59] VITALS: BP 180/100
--- NOTE | 2021-12-04 19:32 | STRESS TEST ---
DATE OF SERVICE: 12/04/2021 RESTING AND POST REGADENOSON TECHNETIUM-99M TETROFOSMIN IMAGING ORDERING PHYSICIAN: Ally Bolivar APRN PRIMARY PHYSICIAN: Dr. Eduardo Kemp. OTHER PHYSICIAN: Dr. Manning. CLINICAL DIAGNOSIS: Coronary artery disease. Baseline images were carried out after injection of 10.29 mCi of technetium-99m Tetrofosmin. This was followed by 0.4 mg regadenoson and 30.8 mCi of technetium-99m Tetrofosmin for stress imaging. The electrocardiogram showed sinus rhythm at baseline. It did not change significantly with regadenoson infusion. The patient noted mild shortness of breath following regadenoson infusion, which resolved in a few minutes. Review of images at rest and following stress does not indicate any significant perfusion defects consistent with myocardial ischemia or infarction. Gated images show normal global left ventricular systolic function with normal regional wall motion. Left ventricular ejection fraction is calculated to be 49%. Left ventricular end-diastolic volume is 102 mL. CONCLUSIONS: 1. No evidence of any significant myocardial ischemia or infarction is seen. 2. No regional wall motion abnormality is seen of the study. 3. Well preserved global left ventricular systolic function with a calculated ejection fraction of 49%. 4. Mild cardiomegaly. Job ID: [id number] DocumentID: [id number] Dictated Date: 12/04/2021 18:06:53 Retail Agent Date: 12/04/2021 19:31:55 Dictated By: KENNY MANNING MD, MA, FACP, FACC,
== END ==
LOC: CARD 12:00
PROVIDERS: ATTEND Nurse Practitioner Family
DX: I51.7 Cardiomegaly (principal); I34.0 Nonrheumatic mitral (valve) insufficiency; I25.10 Atherosclerotic heart disease of native coronary artery without angina pectoris
CPT/HCPCS: 78452; 93017; 93306; A9502

== ENCOUNTER 2022-04-17 05:38 | Outpatient (CLI) | payer MEDICARE, OTHER ==
[~2022-04-17] VITALS: Ht 180.3 cm; Wt 95.3 kg
[~2022-04-17 05:38] MED LIST changes: -CATHETER FLUSH 10 ML SYR IVP PRN; -REGADENOSON 0.4 MG/5 ML SYR (LEXISCAN) IV ONE
== END 2022-04-17 09:15 | disposition home or self-care (01) ==
LOC: PREOP 05:38
PROVIDERS: ATTEND Surgery
DX: Z01.818 Encounter for other preprocedural examination (principal)

== ENCOUNTER 2022-04-30 07:18 | Day surgery (SDC) | payer MEDICARE, OTHER ==
[~2022-04-30] VITALS: Ht 180.3 cm; Wt 95.3 kg
[2022-04-30] MEDS ORDERED: LACTATED RINGERS 1,000 ML IV STA (07:29)
[2022-04-30] MEDS ORDERED: PROPOFOL INJECTION 50 ML IV ONE (07:43)
[2022-04-30 07:50] VITALS: BP 142/79
[2022-04-30 09:35] VITALS: BP 94/54
--- NOTE | 2022-04-30 09:37 | Progress Note-Post Operative ---
Post-Operative Progess Note Surgeon (s)/Card Scraper (s) Surgeon FRANKIE RIOS DO Card Scraper: na Pre-Operative Diagnosis screening colonoscopy Post-Operative Diagnosis colon polyp Procedure & Operative Findings Date of Procedure 04/30/22 Procedure Performed/Findings colonoscopy c hot bx polypectomy x 1 Anesthesia Type per mda Estimated Blood Loss Estimated blood loss (mL): none Specimens/Packing Specimens Removed descending colon polyp FRANKIE RIOS DO Apr 30, 2022 09:37
--- NOTE | 2022-04-30 09:39 | Discharge Inst-Simple/Standard ---
Discharge Inst-Standard Patient Instructions/Follow Up Plan of Care/Instructions/FU: 2 weeks Cindy Restart plavix in 4 days. Activity as Tolerated: Yes Discharge Diet: Regular Diet FRANKIE RIOS DO Apr 30, 2022 09:39
[2022-04-30 09:40] VITALS: BP 108/60
[2022-04-30 10:00] VITALS: BP 122/80
[2022-04-30 10:09] VITALS: BP 122/80
--- NOTE | 2022-04-30 10:34 | Anesthesia-General Post-Op ---
MAC Patient Condition Mental Status/LOC: Same as Preop Cardiovascular: Satisfactory Nausea/Vomiting: Absent Respiratory: Satisfactory Pain: Controlled Complications: Absent Post Op Complications Complications None Follow Up Care/Instructions Patient Instructions None needed. Anesthesiology Discharge Order Discharge Order Patient is doing well, no complaints, stable vital signs, no apparent adverse anesthesia problems. No complications reported per nursing. BURT WINCHESTER DO Apr 30, 2022 10:34
--- NOTE | 2022-04-30 13:13 | OPERATIVE REPORT ---
DATE OF SERVICE: 04/30/2022 PREOPERATIVE DIAGNOSIS: Screening colonoscopy. POSTOPERATIVE DIAGNOSIS: Colon polyp. PROCEDURE: Colonoscopy with hot biopsy polypectomy x1. SURGEON: Frankie White DO ANESTHESIA: Per MDA. ESTIMATED BLOOD LOSS: None. COMPLICATIONS: None. INDICATIONS: The patient is a 71-year-old male needing screening colonoscopy. He understands risks and benefits of procedure and wished to proceed. Consent was signed in the chart. DESCRIPTION OF PROCEDURE: The patient was taken to endoscopy suite, placed in the left lateral recumbent position. Timeout was performed. Digital rectal exam was performed. No palpable polyps, masses or ulcerations. Scope was inserted in the rectum and advanced all the way to cecum with minimal difficulty. Prep was adequate. Scope was slowly retracted back. No polyps, masses or ulcerations within the cecum, ascending, transverse colon. In the descending colon, a small polyp was present, which hot biopsy polypectomy was performed. Scope was then continuously retracted back. No polyps, masses or ulcerations within the sigmoid colon. Once in the rectum, scope was retroflexed noting no other pathology. Scope was returned to its normal position, slowly withdrawn until completely removed. The patient tolerated the procedure well without any complications, taken to recovery room in stable condition. RECOMMENDATIONS: The patient will need repeat colonoscopy in 5 years if benefits outweigh the risks. Any issues before that be seen at that time. The patient will follow up on pathology in the office. CC: Dr. Eduardo Kemp - requested, unable to deliver. Job ID: [id number] DocumentID: [id number] Dictated Date: 04/30/2022 09:42:13 Billing Checker Date: 04/30/2022 13:12:40 Dictated By: FRANKIE WHITE DO
== END 2022-04-30 10:09 | disposition home or self-care (01) ==
LOC: ENDO 07:18
PROVIDERS: ATTEND Surgery
DX: Z12.11 Encounter for screening for malignant neoplasm of colon (principal); D12.4 Benign neoplasm of descending colon; Z79.82 Long term (current) use of aspirin; Z95.1 Presence of aortocoronary bypass graft; Z95.5 Presence of coronary angioplasty implant and graft

== ENCOUNTER 2023-03-26 05:29 | Outpatient (CLI) | payer MEDICARE, OTHER | END 2023-03-26 13:29 | disposition home or self-care (01) | LOC: PREOP 05:29 | PROVIDERS: ATTEND Orthopaedic Surgery | DX: Z01.818 Encounter for other preprocedural examination (principal) ==

== ENCOUNTER 2023-05-12 05:30 | Outpatient (CLI) | payer MEDICARE, OTHER ==
[~2023-05-12] VITALS: Ht 180.3 cm; Wt 98.2 kg
[2023-05-12] MEDS ORDERED: ROSU10TA28 PO (08:26)
== END 2023-05-12 08:43 | disposition home or self-care (01) ==
LOC: PREOP 05:30
PROVIDERS: ATTEND Orthopaedic Surgery
DX: Z01.818 Encounter for other preprocedural examination (principal)

== ENCOUNTER 2023-05-14 07:24 | Day surgery (SDC) | payer MEDICARE, OTHER ==
[2023-05-14] VITALS (7 sets, daily range): BP systolic 95–146; BP diastolic 59–81
[~2023-05-14] VITALS: Ht 180.3 cm; Wt 98.2 kg
[~2023-05-14 07:24] MED LIST changes: +ROSU10TA28 PO
[2023-05-14] MEDS ORDERED: HYDROcodone/ACETAMINOPHEN 7.5 MG/325 MG TABLET PO PRN (07:45)
[2023-05-14] MEDS ORDERED: LACTATED RINGERS 1,000 ML IV PRN (07:45)
[2023-05-14] MEDS ORDERED: ceFAZolin INJECTION 2,000 MG in NS (IVPB) 50 ML 50 ML IV ONE (07:45)
[2023-05-14] MEDS ORDERED: proPOfol 500 MG/50 ML (DIPRIVAN) VIAL IV ONE (08:03)
[2023-05-14] MEDS ORDERED: MIDAZOLAM INJ 2 MG/2 ML VIAL INJ ONE (09:20)
--- NOTE | 2023-05-14 09:21 | Progress Note-Pre Operative ---
Pre-Operative Progress Note Date of Available H&P: May 09, 2023 Date H&P Reviewed: May 14, 2023 Time H&P Reviewed: 09:06 Changes from last HP none Pre-Operative Diagnosis: left long finger cyst FREDI ORDONEZ MD May 14, 2023 09:21
--- NOTE | 2023-05-14 09:23 | Progress Note-Post Operative ---
Post-Operative Progess Note Surgeon (s)/Pain Coordinator (s) Surgeon FREDI ORDONEZ MD Pain Coordinator: Rakan Beyer Pre-Operative Diagnosis left long finger cyst Post-Operative Diagnosis left long finger cyst Procedure & Operative Findings Date of Procedure 05/14/23 Procedure Performed/Findings left long finger cyst excision Anesthesia Type MAC plus local Estimated Blood Loss Estimated blood loss (mL): minimal Specimens/Packing Specimens Removed cyst Packing: none FREDI ORDONEZ MD May 14, 2023 09:23
[2023-05-14] MEDS ORDERED: BUPIVACAINE 0.5% 30 ML VIAL ONE (09:29)
[2023-05-14] MEDS ORDERED: LIDOCAINE 1% INJ 20 ML VIAL ONE (09:29)
[2023-05-14] MEDS ORDERED: ONDANSETRON INJECTION 4 MG/2 ML (SDV) IV ONE (09:51)
--- NOTE | 2023-05-14 10:09 | Anesthesia-General Post-Op ---
MAC Patient Condition Mental Status/LOC: Same as Preop Cardiovascular: Satisfactory Nausea/Vomiting: Absent Respiratory: Satisfactory Pain: Controlled Complications: Absent Post Op Complications Complications None Follow Up Care/Instructions Patient Instructions None needed. Anesthesiology Discharge Order Discharge Order Patient is doing well, no complaints, stable vital signs, no apparent adverse anesthesia problems. No complications reported per nursing. JAMES SANTOS CRNA May 14, 2023 10:09
[2023-05-14] MEDS ORDERED: ONDANSETRON INJECTION 4 MG/2 ML (SDV) IVP PRN (10:15)
[2023-05-14] MEDS ORDERED: fentaNYL INJECTION 100 MCG/2 ML VIAL IVP ONE (10:15)
[2023-05-14] MEDS ORDERED: morphine INJ 10 MG/ML 1ML (SYR OR VIAL) IVP ONE (10:15)
[2023-05-14] MEDS ORDERED: MEPERIDINE INJ 50 MG/ML VIAL IVP ONE (10:15)
--- NOTE | 2023-05-14 19:12 | OPERATIVE REPORT ---
DATE OF SERVICE: 05/14/2023 PREOPERATIVE DIAGNOSIS: Left long finger cyst. POSTOPERATIVE DIAGNOSIS: Left long finger cyst. PROCEDURE: Left long finger cyst excision. SURGEON: Rafael Ordonez M.D. RESOURCE MANAGEMENT PLANNER: Rakan Beyer, who assisted throughout the procedure and closed the incision. ANESTHESIA: Monitored anesthesia care plus local by Rakan See CRNA. TOURNIQUET TIME: 9 minutes at 250 mmHg. ESTIMATED BLOOD LOSS: Minimal. DRAINS: None. COMPLICATIONS: None. POSTOPERATIVE PLAN: Progressive activities as symptoms allow. The patient was transferred to the recovery room awake and stable condition. STATEMENT OF MEDICAL NECESSITY: The patient is a 72-year-old right hand dominant gentleman with a several-month history of swelling at the base of the nail plate on his left long finger. He reported occasional drainage. He reports that this continued to recur, and because of this, he elected to proceed with surgical excision. He understood that he may have a nail deformity postoperatively and that this could recur. DESCRIPTION OF PROCEDURE: After risks and benefits of the procedure were discussed and questions were answered and informed consent was signed and placed on the chart, the operative site was confirmed in the preoperative holding area initialed by surgeon. The patient was then transferred to the operating room. After adequate levels of monitored anesthesia care were obtained, a timeout was called, confirming the operative site, and under sterile conditions, a finger block was placed using plain lidocaine and plain Marcaine. The left upper extremity was prepped and draped in the usual sterile fashion. With the arm elevated, tourniquet inflated to 250 mmHg, a longitudinal incision was made over the cyst. This was excised to its base, leaving the germinal matrix of the nail intact. The adjacent soft tissue was shelled out, but no necrotic tissue was noted. No foreign bodies were noted. The tourniquet was deflated. Pressure was used for hemostasis. Wound was copiously irrigated and then closed with 4-0 nylon in simple interrupted fashion. A soft dressing was applied. The patient was transported to recovery room awake and stable condition. Job ID: [id number] DocumentID: [id number] Dictated Date: 05/14/2023 10:04:06 Blacksmith Helper Date: 05/14/2023 19:09:00 Dictated By: RAFAEL ORDONEZ MD
--- NOTE | 2023-05-15 12:27 | HISTORY AND PHYSICAL ---
SCHEDULED OUTPATIENT SURGERY DATE: 05/14/2023 PROCEDURE: Left long finger cyst excision. HISTORY: The patient is a 72-year-old right hand dominant gentleman with complaints of a painful cyst on the dorsal aspect of his left long finger near his nail bed. He reports that it has fluctuated in size, but it has become painful and activity limiting. Because of this, he has elected to proceed with surgical intervention. REVIEW OF SYSTEMS: No chest pain, no shortness of breath, no dysuria. PAST MEDICAL HISTORY: Myocardial infarction. PAST SURGICAL HISTORY: Coronary artery bypass and cardiac catheterization. FAMILY HISTORY: Coronary artery disease, hypertension. MEDICATIONS: Vitamin D, metoprolol, lisinopril, aspirin. ALLERGIES: No known drug allergies. SOCIAL HISTORY: The patient is a former smoker with a [id number] history. He drinks alcohol socially. PHYSICAL EXAMINATION: GENERAL: The patient is well-developed, well-nourished, in no acute distress. HEENT: Normocephalic, atraumatic. Pupils equal, round, reactive to light. Oropharynx is clear. NECK: Supple. No lymphadenopathy. LUNGS: Clear to auscultation bilaterally. HEART: Regular rate and rhythm. ABDOMEN: Soft, nontender, nondistended. EXTREMITIES: His left long finger demonstrates a 6-mm cyst over the dorsum of his distal phalanx between the DIP joint and his proximal nail bed. There is no erythema or warmth. No discharge. There is a blister-like appearance and it is tender to palpation. Sensation is intact distally. He has a ridge in his nail plate noted. IMPRESSION: Cyst, left long finger. PLAN: Cyst excision, left long finger. The risks, benefits, options, ramifications and recovery have been discussed at length with the patient. Specifically, it has been explained to the patient that he may develop nail deformity, which would be permanent. He understands and wishes to proceed. This will be for outpatient surgery on 05/14/2023. Job ID: [id number] DocumentID: [id number] Dictated Date: 05/08/2023 11:46:13 Firearms Instructor Date: 05/08/2023 12:11:00 Dictated By: FREDI ORDONEZ MD <Dictated by FREDI ORDONEZ MD> <Electronically signed by FREDI ORDONEZ MD> 05/08/23 1528 [facility]
== END 2023-05-14 11:15 | disposition home or self-care (01) ==
LOC: SDC 07:24
PROVIDERS: ATTEND Orthopaedic Surgery
DX: L72.8 Other follicular cysts of the skin and subcutaneous tissue (principal); E66.01 Morbid (severe) obesity due to excess calories; Z87.891 Personal history of nicotine dependence; Z68.30 Body mass index [BMI] 30.0-30.9, adult
CPT/HCPCS: 87081